=== PATIENT | female | born 1995 | race Caucasian/White ===

== ENCOUNTER 2017-12-13 10:56 | Emergency (ER) | payer OTHER, MEDICAID, SELFPAY ==
[2017-12-13 10:57] VITALS: BP 125/74; PULSE 93; RESP 18; TEMP 36.6; O2SAT 99; BMI 25.7
--- NOTE | 2017-12-13 11:56 | ED.DCSUM_ITS ---
- ER Visit Summary Date of Service: 12/13/17 Chief Complaint: Nausea, dehydration History of Present Illness: The patient is a 21 F presents to the emergency department concerned that she has sun poisoning. The patient states that she has been laying out in the sun for the past 3 days. She stopped Wednesday evening. States yesterday, she was feeling lightheaded with generalized malaise. She had nausea and 2 bouts of vomiting. She states that she has had no appetite and she is unable to keep anything down. The patient is on control and is sexually active. She denies any chance of . She has had no urinary symptoms. She denies abdominal pain. She has had no fevers or chills. Physical Examination: Vital signs reviewed General: Well-nourished, well-developed Head: Normocephalic, atraumatic Eyes: Pupils equal and reactive, extraocular muscles intact Neck, supple, no lymphadenopathy Heart: Regular rate and rhythm Respiratory: No distress, clear bilaterally Abdomen: Soft, nontender, nondistended, no peritoneal signs Back: Nontender Extremities: Nontender, no edema, no cords Skin: Normal color no rash Neuro: Alert and oriented, no focal or lateralizing deficits Test Results: [] Emergency Department Course and Treatment: The patient presents with heat exposure. IV was established. She was given fluids, and Zofran. On reevaluation, the patient was feeling markedly improved. The patient has benign abdomen. I do feel that her symptoms are likely secondary to exposure. She is resting comfortably. The patient be discharged home. Treatment Plan: [] Disposition: Discharge Impression:. Nausea vomiting 2. Heat illness This note was generated with [employer] dictation software. It may contain incorrect words, spelling, and punctuation that were not noted in review of the chart prior to signing ED Disposition - Plan for ED Patient: Chief Complaint: General Illness Instructions: ED Exhaustion Heat Prescriptions: Ondansetron [Zofran Odt] 4 mg PO Q8H PRN PRN #10 tab PRN Reason: Nausea Referrals: Dalton Morrison III, MD [Primary Care Provider] -
[2017-12-13 12:28] LABS: Absolute Lymphocyte Count 1.18 X10^3/ul (0.83-4.51); Absolute Neutrophil Count 4.3 X10^3/uL (2.0-7.7); Basophil# 0.03 X10^3/uL; Basophil% 0.5 % (0-1); Eosinophil# 0.07 X10^3/uL; Eosinophils% 1.2 % (0-5); Hematocrit 36.8 % (37-47); Hemoglobin 12.2 g/dl (12.0-15.0); Lymphocyte # 1.18 X10^3/ul (4.0); Lymphocyte % 20.1 % (19-41); Mean Corp Hgb Conc 33.2 g/gl (32-36); Mean Corpuscular Hgb 30.7 pg (27.0-32.0); Mean Corpuscular Volume 92.7 fL (81-99); Mean Platelet Vol. 10.5 fl (6.2-12.0); Monocyte# 0.28 X10^3/uL; Monocyte% 4.8 % (0-10); Neutrophil % 73.2 % (47-70); Platelet Count 259 K/mm3 (150-450); RBC Distribution Width CV 12.9 % (11.6-14.6); RBC Distribution Width SD 43.3 fl (35.1-43.9); Red Blood Count 3.97 M/mm3 (4.2-5.4); White Blood Count 5.9 K/mm3 (4.4-11.0)
[2017-12-13 12:33] LABS: POSITIVE COUNT NO; POSITIVE DIFFERENTIAL NO; POSITIVE MORPHOLOGY NO
[2017-12-13] MEDS: 0.9% Normal Saline 1,000 ML 1000 ML IV (12:38)
[2017-12-13 12:52] LABS: Anion Gap 8 (5-15); BUN 7 mg/dL (7-18); Calcium,Total 8.7 mg/dL (8.5-10.1); Chloride 107 mmol/L (98-107); EST Glomerular Filtration Rate 111 mL/min (>60); Est Glom Filt Rate - Afr Amer 134 mL/min (>60); Estimated Creatinine Clearance 109.78 ml/min; Glucose 71 mg/dL (74-106); Potassium 4.2 mmol/L (3.5-5.1); Sodium Level 138 mmol/L (136-145)
[2017-12-13] MEDS: Ondansetron 4 MG/2 ML Vial IV (12:52)
[2017-12-13 12:53] VITALS: BP 113/79; PULSE 74; RESP 15; O2SAT 100
[2017-12-13 12:59] LABS: Pregnancy, Serum, hCG Quali. NEGATIVE Negative (0-9 Nonpreg)
[2017-12-13 13:56] VITALS: BP 121/95; PULSE 85; RESP 16; O2SAT 97
== END 2017-12-13 13:57 | disposition home or self-care (01) ==
PROVIDERS: Emergency Provider Emergency Medicine; Family Provider Family Medicine; PCP Family Medicine
DX: T67.9XXA Effect of heat and light, unspecified, initial encounter (principal); X32.XXXA Exposure to sunlight, initial encounter; Y93.89 Activity, other specified; Y92.9 Unspecified place or not applicable
CPT/HCPCS: 80048; 84703; 85025; 96374; 99283; J7030; J2405

== ENCOUNTER 2019-03-21 13:19 | Emergency (ER) | payer OTHER, SELFPAY ==
[2019-03-21 13:19] VITALS: BP 124/70; PULSE 90; RESP 18; TEMP 36.6; O2SAT 100; BMI 27.4
[2019-03-21 14:06] VITALS: BP 105/63; BP 108/87; BP 119/87; PULSE 76; PULSE 87
--- NOTE | 2019-03-21 14:06 | EKG12_ITS ---
Test Reason : DIZZINESS Blood Pressure : / mmHG Vent. Rate : 067 BPM Atrial Rate : 067 BPM P-R Int : 144 ms QRS Dur : 090 ms QT Int : 386 ms P-R-T Axes : 041 -08 019 degrees QTc Int : 407 ms Normal sinus rhythm with sinus arrhythmia Normal ECG Confirmed by NELLY VILLALTA ([id number]), development editor LUIS CHOW ([id number]) on 03/28/2019 1:27:01 PM Referred By: YI Confirmed By:NELLY VILLALTA
--- NOTE | 2019-03-21 14:10 | ED.DCSUM_ITS ---
History of Present Illness Chief Complaint: Dizziness Informant: Patient Onset: Days Context: Gradual Onset Timing: Intermittent Current Severity: Moderate Maximum Severity: Moderate Narrative: Patient presents to the emergency department with intermittent dizziness that she describes as lightheadedness. She states his past 3 days been getting more frequent. She states if she changes position, she will feel lightheaded. States it will last seconds to a minute. It is not made worse if she twists her head. She states that when she goes from sitting to standing or if she is walking a distance. She denies chest pain or shortness of breath. She denies any fevers or chills. She denies headache. She denies any recent medication change. Prior similar symptoms: No Recent Illness/Hospitalization: No Past Medical History - Allergies and Home Meds Allergies/Adverse Reactions: Allergies diphenhydramine HCl [From Benadryl] Allergy (Verified 03/21/19 13:21) Unknown Primary Care Physician: Timothy Barreto MD [STAFF PHYSICIAN] - Prior records reviewed: Yes Past Medical History: - Surgical History: no surgical history Smoking Status: Never smoker Review of Systems General: Denies: Chills, Fever, Sweats Eyes: Denies: Visual changes - bilaterally, Diplopia ENT: Denies: Rhinorrhea, Sore throat Cardiovascular: Denies: Chest pain, Palpitations Respiratory: Denies: Dyspnea, Cough, Dyspnea on exertion Gastrointestinal: Denies: Abdominal pain, Nausea, Vomiting, Diarrhea, Melena, Hematochezia Genitourinary: Denies: Dysuria, Hematuria, Frequency Musculoskeletal: Denies: Back pain, Extremity Pain Skin: Denies: Rash, Wounds Neurological: Denies: Headache, Weakness, Numbness Psych: Denies: Depression Endocrine: Denies: Polyuria Physical Exam Vital Signs/Narrative: Vital Signs Temp Pulse Resp BP Pulse Ox 03/21/19 13:19 97.9 F 90 18 124/70 H 100 Inital Vital Signs reviewed: Yes General: Well nourished, Well developed, No Acute Distress Head: Normocephalic, Atraumatic Eyes: Perrl, EOMI ENT: Moist mucous membranes, No rhinorrhea Neck: Supple, Nontender Cardiovascular: Regular rate, Regular rhythm, No murmurs Respiratory: No distress, CTA bilaterally, Chest nontender Abdomen: Soft, Nontender, Nondistended, Normal bowel sounds Back: Nontender, Normal Inspection Extremities: Nontender, No edema Skin: Normal color, No rash Neurological: Alert, Oriented x3, Cranial nerves II-XII grossly intact, Normal Strength, Normal Sensation Psychological: Normal affect, Normal Mood Diagnostic/Tx/Re-eval Abnormal Lab Results 03/21/19 03/21/19 03/21/19 14:13 14:13 14:30 WBC 6.6 RBC 4.49 Hgb 14.1 Hct 43.0 MCV 95.8 MCH 31.4 MCHC 32.8 RDW Std Deviation 41.9 RDW Coeff of Vivi 11.9 Plt Count 250 MPV 11.3 Immature Gran % (Auto) 0.300 Neut % (Auto) 64.0 Lymph % (Auto) 26.3 [place] % (Auto) 5.9 Eos % (Auto) 2.6 Baso % (Auto) 0.9 Absolute Neuts (auto) 4.2 Absolute Lymphs (auto) 1.73 Nucleated RBC % 0 Sodium 140 Potassium 3.9 Chloride 107 Carbon Dioxide 27.0 Anion Gap 6 BUN 14 Creatinine 0.79 Estim Creat Clear Calc 91.62 Est GFR (MDRD) Af Amer 115 Est GFR (MDRD) Non-Af 95 BUN/Creatinine Ratio 17.6 Glucose 85 Calcium 9.1 Total Bilirubin 0.30 AST 12 L ALT 20 Alkaline Phosphatase 57 Total Protein 7.6 Albumin 3.6 Globulin 4.0 Albumin/Globulin Ratio 0.9 Urine Color Urine Clarity Urine pH Ur Specific [place] Urine Protein Urine Glucose (UA) Urine Ketones Urine Occult Blood Urine Nitrite Urine Bilirubin Urine Urobilinogen Ur Leukocyte Esterase Urine RBC Urine WBC Ur Squamous Epith Cells Urine Bacteria Urine Mucus Urine Test Negative 03/21/19 14:30 WBC RBC Hgb Hct MCV MCH MCHC RDW Std Deviation RDW Coeff of Vivi Plt Count MPV Immature Gran % (Auto) Neut % (Auto) Lymph % (Auto) [place] % (Auto) Eos % (Auto) Baso % (Auto) Absolute Neuts (auto) Absolute Lymphs (auto) Nucleated RBC % Sodium Potassium Chloride Carbon Dioxide Anion Gap BUN Creatinine Estim Creat Clear Calc Est GFR (MDRD) Af Amer Est GFR (MDRD) Non-Af BUN/Creatinine Ratio Glucose Calcium Total Bilirubin AST ALT Alkaline Phosphatase Total Protein Albumin Globulin Albumin/Globulin Ratio Urine Color Yellow Urine Clarity Clear Urine pH 7.0 Ur Specific [place] 1.010 Urine Protein Negative Urine Glucose (UA) Normal Urine Ketones Negative Urine Occult Blood Negative Urine Nitrite Negative Urine Bilirubin Negative Urine Urobilinogen Normal Ur Leukocyte Esterase Negative Urine RBC 0 SEEN Urine WBC 0 SEEN Ur Squamous Epith Cells 0 SEEN Urine Bacteria RARE Urine Mucus 0 SEEN Urine Test - Rhythm Strip Rhythm Strip: Sinus Rhythm Rate: 80 Ectopy: None - EKG Initial EKG Interpretation: Sinus Rhythm, No Acute Injury Pattern, Sinus Arrythmia Prior: Unchanged - Medical Decision Making The patient presents to the emergency department with intermittent lightheadedness. EKG was obtained which showed sinus arrhythmia. This is unchanged from prior. Screening labs were obtained and were unremarkable. The patient has a reassuring neurologic examination. She is had no headache. She has no focal symptoms. I am unsure of the cause of her lightheadedness at this time, but I do not suspect a dangerous cause. I am going to give her outpatient cardiology referral as needed. The patient is comfortable with this plan of care. She will be discharged home. Impression 1. Lightheadedness ED Disposition - Plan for ED Patient: Disposition: Home or Assisted Living Instructions: DIZZINESS, Unk Cause Referrals: Timothy Barreto MD [STAFF PHYSICIAN] -
[2019-03-21 14:25] LABS: Absolute Lymphocyte Count 1.73 X10^3/uL (0.83-4.51); Absolute Neutrophil Count 4.2 X10^3/uL (2.0-7.7); Basophil# 0.06 X10^3/uL; Basophil% 0.9 % (0-1); Eosinophil# 0.17 X10^3/uL; Eosinophils% 2.6 % (0-5); Hemoglobin 14.1 g/dL (12.0-15.0); Lymphocyte # 1.73 X10^3/ul (4.0); Lymphocyte % 26.3 % (19-41); Mean Corp Hgb Conc 32.8 g/dL (32-36); Mean Corpuscular Hgb 31.4 pg (27.0-32.0); Mean Corpuscular Volume 95.8 fL (81-99); Mean Platelet Vol. 11.3 fl (6.2-12.0); Monocyte# 0.39 X10^3/uL; Monocyte% 5.9 % (0-10); NRBC Flagged by Analyzer 0 % (0-5); Platelet Count 250 K/mm3 (150-450); RBC Distribution Width CV 11.9 % (11.6-14.6); RBC Distribution Width SD 41.9 fl (35.1-43.9); Red Blood Count 4.49 M/mm3 (4.2-5.4); White Blood Count 6.6 K/mm3 (4.4-11.0)
[2019-03-21] MEDS: 0.9% Normal Saline 1,000 ML 1000 ML IV (14:33)
[2019-03-21 14:39] LABS: Mucous, Urine 0 SEEN /hpf (<or=2+); Red Blood Cells-Urine 0 SEEN /hpf (0-5); Squamous Epithelial Cells - UA 0 SEEN /hpf (5-10); White Blood Cells 0 SEEN /hpf (0-5)
[2019-03-21 14:40] LABS: ALB/GLOB Ratio 0.9 RATIO (0.9-2.4); AST(SGOT) 12 U/L (15-37); Alanine Aminotransfer ALT/SGPT 20 U/L (13-56); Albumin, Serum 3.6 g/dL (3.2-5.0); Alkaline Phosphatase 57 U/L (45-117); Anion Gap 6 (5-15); BUN 14 mg/dL (7-18); BUN/Creat Ratio 17.6 RATIO (10-20); Calcium,Total 9.1 mg/dL (8.5-10.1); Chloride 107 mmol/L (98-107); Creatinine, Serum 0.79 mg/dL (0.55-1.02); EST Glomerular Filtration Rate 95 mL/min (>60); Est Glom Filt Rate - Afr Amer 115 mL/min (>60); Estimated Creatinine Clearance 91.62 ml/min; Glucose 85 mg/dL (74-106); Potassium 3.9 mmol/L (3.5-5.1); Protein, Total 7.6 g/dL (6.4-8.2); Sodium Level 140 mmol/L (136-145)
[2019-03-21 14:41] LABS: Color, Urine Yellow (Yellow); Glucose, Dipstick Normal (Normal); Ketone-Dipstick Negative (Negative); Leukocyte Esterase-Dipstick Negative /ul (Negative); Nitrite-Dipstick Negative (Negative); Occult Blood-Urine Negative /ul (Negative); Protein-Dipstick Negative (Negative); Urine Bilirubin Dipstick Negative (Negative); Urine Clarity Clear (Clear); Urine Urobilinogen Normal (Normal)
[2019-03-21 14:44] LABS: Internal QC Validated? YES +Cl - CLEAR BKGD; Pregnancy, Urine Negative Negative
[2019-03-21 14:49] LABS: Bacteria RARE /hpf (None Seen)
[2019-03-21 15:11] VITALS: BP 102/70; PULSE 60; RESP 16; O2SAT 99
== END 2019-03-21 15:12 | disposition home or self-care (01) ==
LOC: ED 14:14
PROVIDERS: Emergency Provider Emergency Medicine; Family Provider Family Medicine; PCP Family Medicine
DX: R42 Dizziness and giddiness (principal)
CPT/HCPCS: 80053; 81001; 81025; 85025; 93005; 96360; 99285; J7030; A4216

== ENCOUNTER → 2019-04-26 15:05 | Outpatient (CLI) | payer OTHER, SELFPAY ==
[2019-03-29 14:53] VITALS: BMI 28.0
--- NOTE | 2019-04-26 15:09 | ECHOD_ITS ---
Reason For Study: Lightheadedness Procedure This was a 2D Doppler, Color Flow transthoracic echocardiogram. Exam performed in department. Left Ventricle Normal LV size. The estimated ejection fraction is 55 %. No evidence for diastolic dysfunction. No regional wall motion abnormalities noted. Right Ventricle Normal RV size. Normal systolic function. Atria Normal left atrium. Normal right atrium. No doppler evidence for ASD. Mitral Valve There is no mitral valve stenosis. No mitral valve insufficiency. Tricuspid Valve There is no tricuspid stenosis. Unable to estimate RV systolic pressure due to insufficient tricuspid regurgitant envelope. Trivial tricuspid valve insufficiency. Aortic Valve Trisinus/trileaflet aortic valve. There is no aortic stenosis. No aortic valve insufficiency. Pulmonic Valve There is no pulmonic valvular stenosis. No pulmonic valve insufficiency. Great Vessels Normal aortic root. Pericardium/Pleural No pericardial effusion. MMode/2D Measurements & Calculations LVIDd: 4.4 cm IVSd: 0.87 cm Ao root diam: 2.7 cm LVIDs: 3.1 cm LVPWd: 0.83 cm RVDd: 2.7 cm FS: 31.1 % LAV(MOD-bp): 27.4 ml LVAd ap4: 24.6 cm2 SV(MOD-sp4): 39.0 ml LAV(MOD-bp) Indexed: 16.0 ml/m2 EDV(MOD-sp4): 68.0 ml LAV(MOD-sp2): 28.7 ml EDV(sp4-el): 69.2 ml LAV(MOD-sp4): 20.9 ml LVAs ap4: 15.0 cm2 ESV(MOD-sp4): 29.1 ml ESV(sp4-el): 30.1 ml EF(MOD-sp4): 57.3 % EF(sp4-el): 56.5 % SV(sp4-el): 39.1 ml LA A4 area: 11.2 cm2 LA dimension(2D): 2.9 cm RA A4 area: 8.4 cm2 Doppler Measurements & Calculations MV E max cassius: 74.7 cm/sec Lat Peak E' Cassius: 16.3 cm/sec Med Peak E' Cassius: 10.8 cm/sec MV A max cassius: 52.8 cm/sec E/E' lat: 4.6 E/E' med: 6.9 MV E/A: 1.4 Ao V2 max: 108.3 cm/sec LV V1 max: 90.2 cm/sec PA V2 max: 85.3 cm/sec Ao max P.7 mmHg LV V1 max P.3 mmHg Ao V2 mean: 79.8 cm/sec Ao mean P.7 mmHg Ao V2 VTI: 20.2 cm TR max cassius: 160.6 cm/sec TR max P.3 mmHg Interpretation Summary The estimated ejection fraction is 55 %. No evidence for diastolic dysfunction. Ordering Physician: Suri Barreto Referring Physician: Suri Barreto Performed By: Cassie Aguilar, ADAM, RVT
== END ==
PROVIDERS: Family Provider Family Medicine; PCP Family Medicine; Referring Provider Specialist; Visit Provider Specialist
DX: R42 Dizziness and giddiness (principal)
CPT/HCPCS: 93306

== ENCOUNTER → 2020-01-15 17:47 | Outpatient (CLI) | payer OTHER, MEDICAID, SELFPAY ==
[2019-05-10 13:22] VITALS: BMI 28.5
== END ==
PROVIDERS: PCP Family Medicine; Referring Provider Obstetrics & Gynecology; Visit Provider Obstetrics & Gynecology
DX: Z11.59 Encounter for screening for other viral diseases (principal)
CPT/HCPCS: 87635; G2023; U0003

== ENCOUNTER 2020-01-17 02:54 | Inpatient (IN) | payer OTHER, MEDICAID, SELFPAY ==
[2019-05-10 13:22] VITALS: BMI 28.5
[2020-01-17] VITALS (47 sets, daily range): BP systolic 80–147; BP diastolic 44–80; PULSE 59–112; RESP 16; TEMP 36.1–37.3; O2SAT 96–100; BMI 32.8
[2020-01-17] MEDS: Lactated Ringers 1,000 ML 50 ML IV (03:35)
[2020-01-17 04:13] LABS: Absolute Lymphocyte Count 1.46 X10^3/uL (0.83-4.51); Absolute Neutrophil Count 10.4 X10^3/uL (2.0-7.7); Basophil# 0.03 X10^3/uL; Basophil% 0.2 % (0-1); Eosinophil# 0.03 X10^3/uL; Eosinophils% 0.2 % (0-5); Lymphocyte # 1.46 X10^3/ul (4.0); Lymphocyte % 11.5 % (19-41); Mean Corp Hgb Conc 34.2 g/dL (32-36); Mean Corpuscular Hgb 32.1 pg (27.0-32.0); Mean Corpuscular Volume 93.8 fL (81-99); Mean Platelet Vol. 12.6 fl (6.2-12.0); Monocyte# 0.68 X10^3/uL; Monocyte% 5.3 % (0-10); NRBC Flagged by Analyzer 0 % (0-5); Neutrophil # 10.41 X10^3/uL (2.7-7.7); Neutrophil % 81.9 % (47-70); Platelet Count 179 K/mm3 (150-450); RBC Distribution Width CV 12.5 % (11.6-14.6); RBC Distribution Width SD 43.7 fl (35.1-43.9); Red Blood Count 4.05 M/mm3 (4.2-5.4); White Blood Count 12.7 K/mm3 (4.4-11.0)
[2020-01-17] MEDS: 0.9% Saline Lock 10 ML Syringe IV ×2 (06:37→19:22)
[2020-01-17] MEDS: Ondansetron 4 MG/2 ML Vial IV (06:37)
[2020-01-17] MEDS: Lactated Ringers 500 ML 999 ML IV ×2 (06:49→09:29)
[2020-01-17] MEDS: fentaNYL-bupivacaine (epidural) 100 ML BAG EPIDURAL ×2 (08:10→12:55)
--- NOTE | 2020-01-17 08:28 | HP.PCM_ITS ---
History Date of Admission: 01/17/20 Final VIVI: 01/13/20 Gestational age: 40 Weeks and 4 Days History of this : This is a 24 year-old, G 1P0 @ 40.4 wks in early labor- admitted. Medical History: Medical History (Last Reviewed 05/10/19 @ 14:[address] Timothy Barreto MD) Chest tightness (Acute) R07.89 Lightheadedness (Acute) R42 Migraine headache G43.909 Allergies diphenhydramine HCl [From Benadryl] Allergy (Severe, Verified 01/17/20 02:45) Dizziness, lightheadedness, hypotension Home Medications: Home Medications Loratadine 10 mg PO DAILY 03/21/19 Vits [Prenatabs FA] 1 tab PO DAILY 01/17/20 Smoking Status: Former smoker Alcohol: None Number of Fetus(es): 1 History Past Pregnancies: Past Pregnancies Delivery Date Name GA/ Weeks Outcome Route Wt Sex Labor Length Anesthesia Delivery Location Provider FOB Expected Delivery Method: Spontaneous Vaginal Physical Exam General: Alert, Oriented x3 Abdomen: Soft, Non Tender, Gravid Neurological: Cranial nerves II-XII grossly intact PR[employer]ED [employer]ER: Normal external genitalia Estimated gestational size: Appropriate for gestational size Presentation: Cephalic Cervix Dilation (cm): 4 Station: -2 Effacement (%): 80 Assessment/Plan All Active Problems (Last Reviewed 05/10/19 @ 14:[address] Timothy Barreto MD) Chest tightness (Acute) Lightheadedness (Acute) This is a 24 year-old, @ 40.4 weeks, in labor. admit to L&D monitor fhr/toco epidural for pain AROM - light meconium- IFM and iUPC placed Pitocin if indicated
--- NOTE | 2020-01-17 11:33 | NURSING ---
new ramos had to be replaced due to old one continued to drain onto floor even with unit closed.
[2020-01-17] MEDS: Oxytocin 30 units/NS 500 ml 30 UNITS/500 ML IV.SOLN IV (11:44)
[2020-01-17] MEDS: Lactated Ringers 1,000 ML 200 ML IV (12:07)
--- NOTE | 2020-01-17 12:47 | PCM.PN.BLA ---
Progress Note pt resting comfortably with epidural in place- VE performed . Continue pitocin at this time. STROKE Vital Signs/Narrative: Vital Signs Temp Pulse BP Pulse Ox 01/17/20 11:57 70 130/80 H 01/17/20 11:43 97.3 F L 68 83/45 L 100 01/17/20 10:41 97.3 F L 73 112/63 01/17/20 10:34 67 102/58 L 01/17/20 10:04 71 101/55 L 01/17/20 09:48 97.3 F L 70 96/55 L 98 01/17/20 09:34 73 93/53 L 01/17/20 09:29 91 82/49 L 01/17/20 09:28 97.0 F L 01/17/20 09:05 78 99/58 L
[2020-01-17] MEDS: Oxytocin 30 units/NS 500 ml 30 UNITS/500 ML IV.SOLN 334 UNITS IV (16:29)
--- NOTE | 2020-01-17 16:46 | PCM.OPRPT ---
Vaginal Delivery Maternal Presentation: Active Labor Amniotic Membrane Rupture Type: Artificial Amniotic Fluid Description: Lightly stained meconium Final VIVI: 01/13/20 Gestational age: 40 Weeks and 4 Days Date of Procedure: 01/17/20 Pre-Operative Diagnosis: Term gestation, labor Post-Operative Diagnosis: Same, Live female Surgery/ Procedure Performed: Spontaneous Vaginal Delivery Type of Anesthesia: Epidural Description of Procedure: of live female infant born without complication. Good maternal pushing efforts delivered the head followed by the shoulders with gentle downward traction. The infant was placed on the mother's chest was vigorous at time of delivery. Delayed cord clamping was performed. Pediatrics and nursery team were available due to light meconium stained fluid. Cord was then clamped and cut and the placenta was delivered without difficulty intact. The vagina and cervix were evaluated good hemostasis no lacerations appreciated. Placental Delivery Description: Spontaneous Placenta Disposition: [facility] Cord Vessel Description: 3 Vessels Cord Entanglement: None Drain: Barrett to straight drain Estimated Blood Loss: 50 A gender: Female (1 minute): 8 (5 minute): 9 Episiotomy Description: None Laceration: None Medications given after delivery: IV Pitocin Complications: None
[2020-01-17] MEDS: Acetaminophen 500 MG Tablet 1000 MG PO (20:00)
[2020-01-18] MEDS: Ibuprofen 600 MG Tablet PO ×3 (01:23→19:51)
[2020-01-18 03:15] VITALS: BP 98/59; PULSE 84; RESP 18; TEMP 36.8
[2020-01-18] MEDS: Acetaminophen 500 MG Tablet 1000 MG PO (04:18)
[2020-01-18 08:40] VITALS: BP 93/59; PULSE 86; RESP 16; TEMP 37
--- NOTE | 2020-01-18 08:40 | PCM.PN.OB ---
Subjective: Patient seen at bedside. Resting comfortably. Lochia decreasing. Pain controlled. Voiding and ambulating without difficulty. infant but stated will pump once she gets home. Unsure if she wants to be discharged home today or tomorrow. - Physical Exam Vitals/I&O's: Vital Signs Temp Pulse Resp BP Pulse Ox 98.2 F 84 18 98/59 L 97 01/18/20 03:15 01/18/20 03:15 01/18/20 03:15 01/18/20 03:15 01/17/20 17:20 Oxygen Delivery Method Room Air Weight: 191 lb Body Mass Index (BMI) 32.8 Intake and Output for Last 24 Hours 01/16/20 01/17/20 01/18/20 23:59 23:59 23:59 Intake Total 6833.83 / 6833.83 Output Total 8050 / 8050 Balance -1216.17 / -1216.17 General: Alert, Oriented x3 Lungs: Normal air movement Cardiovascular: Regular rate Abdomen: Soft, Non Tender Skin: No rashes Neurological: Cranial nerves II-XII grossly intact Psych/Mental Status: Normal Affect Current Medications Acetaminophen (Tylenol) 1,000 mg PO Q8H PRN PRN PRN Reason: Pain Score 1-3/10 Last Admin: 01/18/20 04:18 Dose: 1,000 mg Documented by: Bisacodyl (Dulcolax) 10 mg RECTAL UD PRN PRN Reason: If no BM Dibucaine (Dibucaine) 1 applic TOPICAL TID PRN PRN; Protocol PRN Reason: Discomfort Hydrocortisone (Hytone) 1 applic TOPICAL TID PRN PRN; Protocol PRN Reason: Discomfort Ibuprofen (Motrin) 600 mg PO Q6H PRN PRN PRN Reason: Pain Score 1-3/10 Last Admin: 01/18/20 01:23 Dose: 600 mg Documented by: Loratadine (Claritin) 10 mg PO DAILY MOSES Measles/Mumps/Rubella Vaccine Live (M-M-R Ii) 0.5 ml SC .ONCE ONE Stop: 01/18/20 10:01 Methylergonovine Maleate (Methergine) 0.2 mg IM X1 PRN PRN Reason: Excess bleeding/uterine atony Ondansetron HCl (Zofran) 4 mg IV Q4H PRN PRN PRN Reason: Nausea Oxycodone HCl (Oxyir) 5 - 10 mg PO Q4H PRN PRN PRN Reason: Pain Score 4-10/10 Senna/Docusate Sodium (Senokot-S, Brittney-Colace) 1 - 2 tablet PO DAILY PRN PRN PRN Reason: Constipation Simethicone (Mylicon) 80 mg PO PCHS PRN PRN Reason: Indigestion/Stomach pain Sodium Chloride () 5 - 15 ml IV UD PRN PRN Reason: SALINE FLUSH Last Admin: 01/17/20 19:22 Dose: 10 ml Documented by: Medical Necessity - Tobacco Use Smoking Status: Former smoker Assessment/Plan All Active Problems (Last Reviewed 05/10/19 @ 14:[address] Timothy Barreto MD) Chest tightness (Acute) Lightheadedness (Acute) A/P PPD #1 Routine care Pain control Anticipate discharge home tomorrow
[2020-01-18] MEDS: Loratadine 10 MG Tablet PO (10:17)
[2020-01-18 13:43] VITALS: BP 105/60; PULSE 88; RESP 16; TEMP 37.2
[2020-01-18 16:58] VITALS: BP 97/59; PULSE 75; RESP 16; TEMP 36.8
[2020-01-18 19:38] VITALS: BP 102/69; PULSE 83; RESP 14; TEMP 36.7
[2020-01-18] MEDS: Senna/Docusate Sodium 1 Tablet PO (20:27)
[2020-01-19 02:32] VITALS: BP 103/63; PULSE 91; RESP 16; TEMP 36.8
[2020-01-19] MEDS: Ibuprofen 600 MG Tablet PO (06:33)
--- NOTE | 2020-01-19 07:33 | DCINST_ITS ---
May resume sexual activity in: 6-8 weeks Additional Instructions: If you experience any of the following, contact your healthcare provider. * Bleeding that soaks a pad every hour for 2 hours * Fever 100.4 or higher * Unrelieved incision or abdominal pain * Swelling, redness, discharge or bleeding from your incision or episiotomy site * Your incision begins to separate * Problems urinating (including inability to urinate or burning while urinating). * Visual changes * Severe headache * Flu-like symptoms * Pain or redness in one of both of your breasts * Pain, warmth, tenderness or swelling in your legs, especially the calf area * Frequent nausea and vomiting * Symptoms of depression or anxiety If you experience any of the following, call 911 or go to the nearest Emergency Room. * Chest pain * Problems breathing * Seizure activity * Partial or complete paralysis of a body part, slurred speech, weakness or drooping of the face, or a sudden inability to walk or hold your balance Allergies/Adverse Reactions: Allergies diphenhydramine HCl [From Benadryl] Allergy (Severe, Verified 01/17/20 02:45) Dizziness, lightheadedness, hypotension Medications to take at Discharge Loratadine 10 mg PO DAILY 03/21/19 Vits [Prenatabs FA ] 1 tab PO DAILY 01/17/20 Please Follow Up With: Anne-Marie Marques DO When: 2 weeks virtual visit and 4 weeks in office Primary Care Physician: Dalton Morrison III, MD [Primary Care Provider] - Test Results: Test results from this visit will be discussed in further detail at your follow- up appointment, if applicable.
--- NOTE | 2020-01-19 07:33 | PCM.DCVAG ---
May resume sexual activity in: 6-8 weeks Additional Instructions: If you experience any of the following, contact your healthcare provider. Bleeding that soaks a pad every hour for 2 hours Fever 100.4 or higher Unrelieved incision or abdominal pain Swelling, redness, discharge or bleeding from your incision or episiotomy site Your incision begins to separate Problems urinating (including inability to urinate or burning while urinating). Visual changes Severe headache Flu-like symptoms Pain or redness in one of both of your breasts Pain, warmth, tenderness or swelling in your legs, especially the calf area Frequent nausea and vomiting Symptoms of depression or anxiety If you experience any of the following, call 911 or go to the nearest Emergency Room. Chest pain Problems breathing Seizure activity Partial or complete paralysis of a body part, slurred speech, weakness or drooping of the face, or a sudden inability to walk or hold your balance Allergies/Adverse Reactions: Allergies diphenhydramine HCl [From Benadryl] Allergy (Severe, Verified 01/17/20 02:45) Dizziness, lightheadedness, hypotension Medications to take at Discharge Loratadine 10 mg PO DAILY 03/21/19 Vits [Prenatabs FA ] 1 tab PO DAILY 01/17/20 Please Follow Up With: Anne-Marie Marques DO When: 2 weeks virtual visit and 4 weeks in office Primary Care Physician: Dalton Morrison III, MD [Primary Care Provider] - Test Results: Test results from this visit will be discussed in further detail at your follow-up appointment, if applicable.
--- NOTE | 2020-01-19 07:34 | PCM.PN.OB ---
Subjective: Patient seen at bedside. Feeling good. Denies pain. going well. Ambulating and voiding without difficulty. Desires to be discharged home today. Objective: Lochia decreasing. Fundus Firm 2 below U - Physical Exam Vitals/I&O's: Vital Signs Temp Pulse Resp BP Pulse Ox 98.3 F 91 16 103/63 97 01/19/20 02:32 01/19/20 02:32 01/19/20 02:32 01/19/20 02:32 01/17/20 17:20 Oxygen Delivery Method Room Air Weight: 191 lb Body Mass Index (BMI) 32.8 Intake and Output for Last 24 Hours 01/17/20 01/18/20 01/19/20 23:59 23:59 23:59 Intake Total 6833.83 / 6833.83 Output Total 8050 / 8050 Balance -1216.17 / -1216.17 General: Alert Oral: Moist Mucosa Lungs: Normal air movement Cardiovascular: Regular rate Abdomen: Soft, Non Tender, Passing Flatus, - - patient concerned she has not had a BM. Taking stool softners Skin: No rashes Neurological: Cranial nerves II-XII grossly intact Psych/Mental Status: Normal Affect, Appropriate Current Medications Acetaminophen (Tylenol) 1,000 mg PO Q8H PRN PRN PRN Reason: Pain Score 1-3/10 Last Admin: 01/18/20 04:18 Dose: 1,000 mg Documented by: Bisacodyl (Dulcolax) 10 mg RECTAL UD PRN PRN Reason: If no BM Dibucaine (Dibucaine) 1 applic TOPICAL TID PRN PRN; Protocol PRN Reason: Discomfort Hydrocortisone (Hytone) 1 applic TOPICAL TID PRN PRN; Protocol PRN Reason: Discomfort Ibuprofen (Motrin) 600 mg PO Q6H PRN PRN PRN Reason: Pain Score 1-3/10 Last Admin: 01/19/20 06:33 Dose: 600 mg Documented by: Loratadine (Claritin) 10 mg PO DAILY MOSES Last Admin: 01/18/20 10:17 Dose: 10 mg Documented by: Methylergonovine Maleate (Methergine) 0.2 mg IM X1 PRN PRN Reason: Excess bleeding/uterine atony Ondansetron HCl (Zofran) 4 mg IV Q4H PRN PRN PRN Reason: Nausea Oxycodone HCl (Oxyir) 5 - 10 mg PO Q4H PRN PRN PRN Reason: Pain Score 4-10/10 Senna/Docusate Sodium (Senokot-S, Brittney-Colace) 1 - 2 tablet PO DAILY PRN PRN PRN Reason: Constipation Last Admin: 01/18/20 20:27 Dose: 2 tablet Documented by: Simethicone (Mylicon) 80 mg PO PCHS PRN PRN Reason: Indigestion/Stomach pain Sodium Chloride () 5 - 15 ml IV UD PRN PRN Reason: SALINE FLUSH Last Admin: 01/17/20 19:22 Dose: 10 ml Documented by: Medical Necessity - Tobacco Use Smoking Status: Former smoker Assessment/Plan All Active Problems (Last Reviewed 05/10/19 @ 14:[address] Timothy Barreto MD) Chest tightness (Acute) Lightheadedness (Acute) A/P PPD #2 Routine care Discharge home today- follow up in office at 2 weeks
[2020-01-19 09:15] VITALS: BP 110/68; PULSE 79; RESP 16; TEMP 36.8
[2020-01-19] MEDS: Loratadine 10 MG Tablet PO (09:26)
[2020-01-19] MEDS: Acetaminophen 500 MG Tablet 1000 MG PO (09:26)
[2020-01-19] MEDS: Senna/Docusate Sodium 1 Tablet PO (09:27)
== END 2020-01-19 12:00 | disposition home or self-care (01) | DRG 807 ==
LOC: WPOUT 02:56 → WP 02:56
PROVIDERS: Obstetrics & Gynecology; Admitting Provider Obstetrics & Gynecology; PCP Family Medicine; Visit Provider Obstetrics & Gynecology
DX: O77.0 Labor and delivery complicated by meconium in amniotic fluid (principal); Z37.0 Single live birth; Z3A.40 40 weeks gestation of pregnancy; Z87.891 Personal history of nicotine dependence
CPT/HCPCS: 59025; 59050; 85025; 86850; 86900; 86901; 87635; 99218; G2023; J7120; A4216; G0378; J2405; U0003

== ENCOUNTER → 2021-06-25 12:19 | Outpatient (CLI) | payer OTHER, MEDICAID, SELFPAY ==
[2021-06-25 15:38] LABS: ALB/GLOB Ratio 1.1 RATIO (0.9-2.4); AST(SGOT) 18 U/L (15-37); Alanine Aminotransfer ALT/SGPT 29 U/L (13-56); Albumin, Serum 3.9 g/dL (3.2-5.0); Alkaline Phosphatase 74 U/L (45-117); Anion Gap 7 (5-15); BUN 11 mg/dL (7-18); BUN/Creat Ratio 17.8 RATIO (10-20); Chloride 108 mmol/L (98-107); Creatinine, Serum 0.62 mg/dL (0.55-1.02); EST Glomerular Filtration Rate 125 mL/min (>60); Est Glom Filt Rate - Afr Amer 151 mL/min (>60); Globulin 3.7 g/dL (2.2-4.2); Glucose 79 mg/dL (74-106); Magnesium 2.2 mg/dL (1.6-2.6); Potassium 3.4 mmol/L (3.5-5.1); Protein, Total 7.6 g/dL (6.4-8.2); Sodium Level 139 mmol/L (136-145)
== END ==
PROVIDERS: Visit Provider Family Medicine
DX: R19.7 Diarrhea, unspecified (principal)
CPT/HCPCS: 36415; 80053; 83735

== ENCOUNTER 2021-10-10 09:51 | Outpatient (CLI) | payer MEDICAID, SELFPAY ==
[2021-10-10 10:19] LABS: Erythrocyte Sedimentation Rate 11 mm/hr (0-30)
[2021-10-10 10:32] LABS: Rheumatoid Factor < 10.0 IU/mL (<15)
[2021-10-12 16:20] LABS: ANTINUCLEAR ANTIBODIES DIRECT Negative (Negative)
[2021-10-13 14:43] LABS: CCP IgG Antibodies < 1 units (0-19)
== END 2021-10-10 23:59 | disposition home or self-care (01) ==
LOC: LAB 09:53
PROVIDERS: PCP Family Medicine; Referring Provider Nurse Practitioner; Visit Provider Nurse Practitioner
DX: M25.9 Joint disorder, unspecified (principal)
CPT/HCPCS: 36415; 85652; 86038; 86140; 86200; 86225; 86235; 86431

== ENCOUNTER 2021-11-12 09:00 | Outpatient (RCR) | payer MEDICAID, SELFPAY ==
--- NOTE | 2021-10-10 15:22 | HP.PTEVAL ---
Patient's Visit Information NILA HAWTHORNE is a 25 year old F referred to Physical Therapy by ELIZABET Bernstein with a diagnosis of PATELLA FEMORAL SYNDROME,ITB FRICTION ,IMPINGEMENT SYNDROME L SHOULDER ,. Date of Evaluation: 10/10/21 Physical Therapist: Russ George, PT, Cert MDT, OCS - Visit Plan Frequency: 2x /Week Duration: 4 Weeks Plan: PT INTERVETIONS MANUAL THERAPY STM/THERAGUN UT/LEVATOR ,POSTURAL EX'S,RTC/SCPAULAR STRENGTHNEING, STRENGTHENING QUADS/HAM/HIP, FLEXABILITY AND MODALTIES - Subjective This 25 y/o female presents tp physical therapy with left shoulder pain and knee pain. Patient has knee pain since HS with couple injury and spraining LCL. Most recently noticed knee pain more frequently with walking ,standing squatting ,kneeling and stairs. Alleviating factors rest meloxicam. Pain located lateral knee ache occasional sharp pain . Denies paresthesia /tingling. Patient pain affects sleeping. Patient affects housework tasks. Patient pain ~ 6 months worse past 1 month. Pain located superior shoulder. Aggravating factors lifting ,holding daughter or and general activities which patient is left hand dominate. Alleviating factors rest MEDS ,massage. Denies paresthesia. Patient condition of shoulder pain and knee pain. Patient had x-rays knee showed mild tilt patella , - shoulder. Patient also getting blood work for Sed rate ,ERP inflammation per family DR. HAMILTON: engaged ,2 year old. VOCATION: Office work - Pain Right Knee Pain Intensity (Out of 10): 4 Pain Intensity Range: 10 Left Shoulder Pain Intensity (Out of 10): 7 Pain Intensity Range: 10 - Objective POSTURE: slight pes planus ,slight knee valgus , patella Natasha, rounded shoulders. NEURO: denies paresthesia/tingling. GAIT: reciprocal pattern. AROM: knee flexion right 0-140 supine knee flexion. MMT: quads/hams 4/5,hip abduction 23.2 peak force ,ankle 5/5. QUAD CONTRACTION: patella lateral glide. FLEXABILITY: hamstrings min tight ,IT band WFL. AROM SHOULDER : flexion 160 degrees /abduction /ER 90 ,IR L1. SCAPULAR-HUMERAL: <1:1 ratio. MMT: ( [place]): infraspinatus 17.6,supraspinatus 15.7.,deltoid 14.2,,subscapularis 18.2,scapular 12.2 - Special Tests R Knee Myrna - Meniscus: Negative R Knee Apley - Meniscus: Negative R Knee Posterior Drawer - PCL: Negative R Knee Valgus - MCL: Negative R Knee Varus - LCL: Negative R Knee Patellar Apprehension - PFS: Positive R Knee Patellar Grind - PFS: Positive L Shoulder Lift Off Test - Subscapular Tear: Negative L Shoulder Drop Sign - IS Test: Negative L Shoulder Empty Can - SS: Negative L Shoulder Belly Press - SupScap: Negative L Shoulder Neer - Impingement: Negative L Shoulder Castro Quinn - Impingement: Negative L Shoulder Shrug Sign - OA/Adhesive Capsulitis: Negative - Balance/Special Test Scores Quick DASH Score: 36.3625 - Goals Goal 1:: Patient to be I with HEP shoulder and knee Goal Time Frame: 4-6 Weeks Goal 2:: Patient to improve RTC by 5 peak force and hip abd by 10 peak force to improve function Goal Time Frame: 4-6 Weeks Goal 3:: Patient to demonstrate 50 % improvement with decrease pain and improve function knee and shoulder Goal Time Frame: 4-6 Weeks Goal 4:: Patient improve quick dash by 5 points or > to improve QOL. Goal Time Frame: 4-6 Weeks Goal 5:: Patient to improve ability with extended walking standing stairs and squatting with less pain by 50% Goal Time Frame: 4-6 Weeks - Rehabilitation Potential Physical Therapy Diagnosis: This patient has right knee pain with possible patella femoral syndrome ,left shoulder impingement with tendonitis weakness RTC along with pain with OH activities ,knee hip abd weakness tender distal I T BAND thus benefit from skilled PT Rehabilitation Potential: Good - Anticipated Interventions Patient/Client Instruction: Educate patient on: Condition, Plan of Care For the Purpose of:: To decrease pain, To improve muscle performance and motor function, To increase tolerance to activity/condition/position, To improve performance and independence with ADL's, To improve ability of physical actions for home/community/work/leisure, To improve health of tissue, To decrease soft tissue restriction, To increase flexibility/ROM, To assume or resume ADL's Therapeutic Exercise to Include: Strength training, Power training, Balance training, Postural training, Flexibilty training, Active ROM Comment: RTC,HIP/QUADS/HAMS For the Purpose of:: To decrease pain, To increase ROM, To improve muscle performance and motor function, To increase tolerance to activity/condition/position, To improve ability of physical actions for home/community/work/leisure, To improve gait and locomotor functions, To improve health of tissue, To decrease soft tissue restriction, To increase flexibility/ROM, To improve endurance, To improve balance, To reduce risk of recurrence Manual Therapy Techniques to Include: Soft tissue mobilization Comment: THERAGUN UT/LEVTOR For the Purpose of:: To decrease pain, To increase ROM, To improve health of tissue, To decrease soft tissue restriction TENS: Yes IF ES: Yes Cryotherapy (ice pack, ice massage): Yes Thermo therapy (hot pack): Yes Ultrasound (thermal/non thermal): Yes For the Purpose of:: To decrease pain, To decrease swelling/inflammation, To improve health of tissue, To decrease soft tissue restriction Thank you for the opportunity to evaluate your patient. For Medicare and Medicare HMO plans, please review the plan of care and approve it. It will need to be FAXED BACK to us at [phone] for Medicare purposes. For Medicare only, by signing this I certify the plan of care. Please let me know if there are questions or concerns regarding this plan of care. Physician Signature: Date:
--- NOTE | 2022-04-01 09:23 | HP.PTDCSUM ---
It has been my pleasure to treat NILA HAWTHORNE referred by ELIZABET Bernstein, with the diagnosis of PATELLA FEMORAL SYNDROME,ITB FRICTION ,IMPINGEMENT SYNDROME L SHOULDER , for a total of 7 visit(s). Discharge Date: Please see the following information for a summary of their discharge status. Subjective: Patient reports knees are better. Seen Neurologist ,place on gabapentin. Plan to have ENG test, will see ortho tomorrow. knees about 70 % better. Patient had blood work -. Will see RA doctor in jan Right Knee Pain Intensity (Out of 10): 0 Left Shoulder Pain Intensity (Out of 10): 6 % Improvement: 50 Objective/Function: POSTURE: WFL. GAIT: RECIPROCAL PATTERN. NEURO: denies paresthesia/tingling. AROM: BUE WF;. CERVICAL ROM: WFL ALL PLANES OF MOTION PULLING WITH FLEXION IN SCAPULAR. MMT: QUADS/HAMS/HIP 5/5 ,ANKLE 5/5. RTC/DELTOID 4/5. PALPATION: MILD TENDER IT BAND Goal 1:: Patient to be I with HEP shoulder and knee Goal 2:: Patient to improve RTC by 5 peak force and hip abd by 10 peak force to improve function Goal 3:: Patient to demonstrate 50 % improvement with decrease pain and improve function knee and shoulder Goal 4:: Patient improve quick dash by 5 points or > to improve QOL. Goal 5:: Patient to improve ability with extended walking standing stairs and squatting with less pain by 50% Plan: RTD If there are questions or concerns regarding this patient's physical therapy, please feel free to call me at [phone]. Thank you for the referral of this patient. Sincerely, Russ George, PT, Cert MDT, OCS Balance/Gait/Functional tests - Balance/Special Test Scores Quick DASH Score: 11.3626
== END 2021-11-12 19:00 | disposition home or self-care (01) ==
LOC: PT 09:00
PROVIDERS: PCP Family Medicine; Referring Provider Nurse Practitioner; Visit Provider Nurse Practitioner
DX: M75.42 Impingement syndrome of left shoulder (principal); M22.2X9 Patellofemoral disorders, unspecified knee; M76.30 Iliotibial band syndrome, unspecified leg
CPT/HCPCS: 97110; 97140; 97162; 97530

== ENCOUNTER → 2021-11-25 | Outpatient (CLI) | payer MEDICAID, SELFPAY ==
--- NOTE | 2021-11-25 17:35 | MRI_ITS ---
EXAM: MR CERVICAL SPINE WITHOUT INTRAVENOUS CONTRAST CLINICAL INDICATION: pain -- Please extend to T1-T2 TECHNIQUE: Multiplanar and multisequence MR images of the cervical spine down to T4 without intravenous contrast were performed. Magnetic field strength 1.5 T. This report was created using [employer] report [employer] technology. COMPARISON: None. FINDINGS: VERTEBRAE: Unremarkable. Normal vertebral bodies and posterior elements. Normal alignment. Normal craniocervical junction and cervicothoracic junction. No spondylolisthesis. There is preservation of the normal cervical lordosis. SPINAL CORD: Unremarkable in signal and morphology. SOFT TISSUES: Unremarkable. No prevertebral soft tissue swelling. LYMPH NODES: Unremarkable. There is no cervical adenopathy. DISCS/SPINAL CANAL/NEURAL FORAMINA: C2-C3: Unremarkable. Normal disc height and morphology. Normal spinal canal. Normal neuroforamina. C3-C4: Unremarkable. Normal disc height and morphology. Normal spinal canal. Normal neuroforamina. C4-C5: Unremarkable. Normal disc height and morphology. Normal spinal canal. Normal neuroforamina. C5-C6: Unremarkable. Normal disc height and morphology. Normal spinal canal. Normal neuroforamina. C6-C7: Unremarkable. Normal disc height and morphology. Normal spinal canal. Normal neuroforamina. C7-T1: Unremarkable. Normal disc height and morphology. Normal spinal canal. Normal neuroforamina. MRI/Spine Cervical (Routine) IMPRESSION: Unremarkable MRI of the cervical spine. Electronically Signed: Jarod Hayward MD at 2:08 EDT ,
== END | disposition home or self-care (01) ==
LOC: MRI 16:57
PROVIDERS: PCP Family Medicine; Referring Provider Nurse Practitioner; Visit Provider Nurse Practitioner
DX: M54.12 Radiculopathy, cervical region (principal)
CPT/HCPCS: 72141

== ENCOUNTER → 2021-12-03 | Outpatient (CLI) | payer MEDICAID, SELFPAY ==
[2021-12-03 17:53] LABS: Absolute Lymphocyte Count 1.78 X10^3/uL (0.83-4.51); Absolute Neutrophil Count 5.1 X10^3/uL (2.0-7.7); Basophil# 0.05 X10^3/uL; Basophil% 0.7 % (0-1); Eosinophil# 0.19 X10^3/uL; Eosinophils% 2.5 % (0-5); Hematocrit 38.6 % (37-47); Hemoglobin 12.5 g/dL (12.0-15.0); Lymphocyte # 1.78 X10^3/ul (0.83-4.51); Lymphocyte % 23.4 % (19-41); Mean Corp Hgb Conc 32.4 g/dL (32-36); Mean Corpuscular Hgb 30.2 pg (27.0-32.0); Mean Corpuscular Volume 93.2 fL (81-99); Mean Platelet Vol. 11.8 fl (6.2-12.0); Monocyte# 0.48 X10^3/uL; Monocyte% 6.3 % (0-10); NRBC Flagged by Analyzer 0 % (0-5); Neutrophil % 66.8 % (47-70); Platelet Count 304 K/mm3 (150-450); RBC Distribution Width CV 12.5 % (11.6-14.6); RBC Distribution Width SD 42.7 fl (35.1-43.9); Red Blood Count 4.14 M/mm3 (4.2-5.4); White Blood Count 7.6 K/mm3 (4.4-11.0)
[2021-12-03 18:15] LABS: Erythrocyte Sedimentation Rate 11 mm/hr (0-30)
[2021-12-03 18:23] LABS: ALB/GLOB Ratio 1.1 RATIO (0.9-2.4); AST(SGOT) 12 U/L (15-37); Alanine Aminotransfer ALT/SGPT 20 U/L (13-56); Alkaline Phosphatase 68 U/L (45-117); Anion Gap 6 (5-15); BUN 10 mg/dL (7-18); BUN/Creat Ratio 12.7 RATIO (10-20); CRP < 2.90 mg/L (0.0-3.0); Calcium,Total 9.2 mg/dL (8.5-10.1); Chloride 107 mmol/L (98-107); Creatinine, Serum 0.78 mg/dL (0.55-1.02); EST Glomerular Filtration Rate 94 mL/min (>60); Est Glom Filt Rate - Afr Amer 114 mL/min (>60); Globulin 3.7 g/dL (2.2-4.2); Glucose 88 mg/dL (74-106); Potassium 3.6 mmol/L (3.5-5.1); Protein, Total 7.7 g/dL (6.4-8.2); Rheumatoid Factor < 10.0 IU/mL (<15); Sodium Level 139 mmol/L (136-145)
[2021-12-08 11:26] LABS: Anti-Centromere B Ab <0.2 AI (0.0-0.9); Anti-Chromatin <0.2 AI (0.0-0.9); Anti-Jo <0.2 AI (0.0-0.9); Anti-Scleroderma-70 AB <0.2 AI (0.0-0.9); Anti-ribosomal P Antibodies <0.2 AI (0.0-0.9); RNP Ab <0.2 AI (0.0-0.9); SJOGREN'S Anti-SS-A test < 0.2 AI (0.0-0.9); SJOGREN'S Anti-SS-B test < 0.2 AI (0.0-0.9); Smith Ab <0.2 AI (0.0-0.9); Smith/RNP Ab <0.2 AI (0.0-0.9)
[2021-12-08 19:32] LABS: Anti-dsDNA Ab <1 IU/mL (0-9)
== END | disposition home or self-care (01) ==
PROVIDERS: PCP Family Medicine; Referring Provider Family Medicine; Visit Provider Family Medicine
DX: M25.50 Pain in unspecified joint (principal)
CPT/HCPCS: 36415; 80053; 85025; 85652; 86038; 86140; 86225; 86235; 86431

== ENCOUNTER → 2021-12-05 | Outpatient (CLI) | payer MEDICAID, SELFPAY ==
--- NOTE | 2021-12-05 07:23 | MRI_ITS ---
STUDY: MRI LEFT SHOULDER REASON FOR EXAM: Female, 25 years old. LEFT shoulder pain-chronic TECHNIQUE: Standardized fat and water weighted pulse sequences were obtained in all 3 orthogonal planes. COMPARISON: Left shoulder x-ray dated OCTOBER 06, 2021 FINDINGS: Mild tendinosis of the anterior aspect of the supraspinatus tendon at the greater tuberosity insertion site with thinning of the fibers and intrasubstance signal abnormality. No demonstrated full-thickness tear or retraction. Normal infraspinatus tendon. Normal subscapularis tendon. Normal teres minor tendon. Normal supraspinatus muscle. Normal infraspinatus muscle. Normal subscapularis muscle. Normal teres minor muscle. Normal glenohumeral articulation. Normal humeral head and visualized proximal humerus. Normal biceps labral complex. Normal intracapsular long biceps tendon. Normal labrum. Normal capsulo- ligamentous complex. Normal rotator interval. Normal acromioclavicular articulation. There is a Type II morphology (curved), with a neutral orientation. There is no subacromial-subdeltoid bursal fluid. Normal visualized coracohumeral and coracoacromial ligaments. Normal quadrilateral space. Normal axillary space. Normal deltoid muscle. Normal trapezius muscle. MRI/Upper Ext Joint Only(Routine) IMPRESSION: 1. Mild tendinosis of the anterior aspect of the supraspinatus tendon at the greater tuberosity insertion site with thinning of the fibers and intrasubstance signal abnormality. No demonstrated full-thickness tear or retraction. Electronically Signed: Silvestre Hines MD at 12:24 EDT ,
== END | disposition home or self-care (01) ==
LOC: MRI 07:23
PROVIDERS: PCP Family Medicine; Referring Provider Nurse Practitioner; Visit Provider Nurse Practitioner
DX: M75.42 Impingement syndrome of left shoulder (principal)
CPT/HCPCS: 73221

== ENCOUNTER → 2024-01-20 | Outpatient (CLI) | payer MEDICAID, SELFPAY ==
[2024-01-20 12:19] LABS: Hematocrit 40.3 % (37-47); Hemoglobin 13.2 g/dL (12.0-15.0); Mean Corp Hgb Conc 32.8 g/dL (32-36); Mean Corpuscular Hgb 30.3 pg (27.0-32.0); Mean Corpuscular Volume 92.6 fL (81-99); Mean Platelet Vol. 11.6 fl (6.2-12.0); Platelet Count 285 K/mm3 (150-450); RBC Distribution Width SD 40.7 fl (35.1-43.9); Red Blood Count 4.35 M/mm3 (4.2-5.4); White Blood Count 6.8 K/mm3 (4.4-11.0)
[2024-01-20 12:47] LABS: Vitamin B12 671 pg/mL (211-911); Vitamin D,25 Hydroxy 47.9 ng/mL
[2024-01-20 13:38] LABS: ALB/GLOB Ratio 1.1 RATIO (0.9-2.4); AST(SGOT) 13 U/L (15-37); Alanine Aminotransfer ALT/SGPT 18 U/L (13-56); Albumin, Serum 3.9 g/dL (3.2-5.0); Alkaline Phosphatase 63 U/L (45-117); Anion Gap 6 (5-15); BUN 9 mg/dL (7-18); BUN/Creat Ratio 12.1 RATIO (10-20); Calcium,Total 9.6 mg/dL (8.5-10.1); Chloride 107 mmol/L (98-107); Cholesterol 173 mg/dL (200); Creatinine, Serum 0.74 mg/dL (0.55-1.02); EST Glomerular Filtration Rate 99 mL/min (>60); Est Glom Filt Rate - Afr Amer 119 mL/min (>60); Ferritin 20 ng/mL (8-252); Globulin 3.7 g/dL (2.2-4.2); Glucose 81 mg/dL (74-106); High Density Lipoprotein 47 mg/dL; Iron 64 ug/dL (50-170); Iron Binding Capacity,Total 308 ug/dL (250-450); PERCENT IRON SATURATION 20.8 % (15.0-55.0); Protein, Total 7.6 g/dL (6.4-8.2); Sodium Level 139 mmol/L (136-145); Triglycerides 117 mg/dL; Very Low Density Lipoprotein 23 mg/dL (5-40)
== END | disposition home or self-care (01) ==
LOC: MTLAB 01-24 09:10
PROVIDERS: PCP Family Medicine; Referring Provider Physician Assistant; Visit Provider Physician Assistant
DX: Z79.899 Other long term (current) drug therapy (principal)
CPT/HCPCS: 36415; 80053; 80061; 82306; 82607; 82728; 82746; 83540; 83550; 85027